=== PATIENT | male | born 1955 | race Caucasian/White ===

== ENCOUNTER 2021-08-26 14:53 | Outpatient (CLI) | payer OTHER, SELFPAY ==
[2021-08-26 15:16] VITALS: BP 140/75; PULSE 70; RESP 16; TEMP 36.7; O2SAT 97; BMI 29.8
[2021-08-26] MEDS: 0.9% Saline Lock 10 ML Syringe IV (15:21)
[2021-08-26 16:33] VITALS: BP 128/78; PULSE 66; RESP 16; TEMP 37.2; O2SAT 98
[2021-08-26 17:33] VITALS: BP 139/86; PULSE 56; RESP 16; TEMP 37.1; O2SAT 100
== END 2021-08-26 17:36 | disposition home or self-care (01) ==
LOC: MS3OUT 14:57 → MS3 14:57
PROVIDERS: Visit Provider Nurse Practitioner Adult Health
DX: Z23 Encounter for immunization (principal); U07.1 COVID-19
CPT/HCPCS: J7050; M0245; Q0245; A4216